=== PATIENT | female | born 1975 | race Hispanic/Latino ===

== ENCOUNTER 2021-03-09 09:50 | Inpatient (IN) | payer BC ==
--- NOTE | 2021-03-09 10:35 | RAD REPORT ---
EXAM DESCRIPTION: CT - Head Brain Wo Cont - 03/09/2021 10:26 am CLINICAL HISTORY: Syncope COMPARISON: None. TECHNIQUE: Computed axial tomography of the head was obtained. IV contrast was not requested. All CT scans are performed using dose optimization technique as appropriate and may include automated exposure control or mA/KV adjustment according to patient size. FINDINGS: An intracranial bleed is not seen . The ventricles are normal in caliber. No extra-axial fluid collection is noted. Fluid within the sinuses/ mastoids is not seen. IMPRESSION: No acute intracranial abnormality is seen. If patient's symptoms persist MRI of the bra in would be recommended.
--- NOTE | 2021-03-09 11:41 | RAD REPORT ---
EXAM DESCRIPTION: Michelle Single View03/09/2021 10:36 am CLINICAL HISTORY: Chest pain COMPARISON: none FINDINGS: [id number] bilateral pulmonary opacities. The heart is normal size IMPRESSION: Mild to moderate bilateral pulmonary opacities probably pneumonia
[2021-03-09 12:12] LABS: Absolute Lymphocytes (CBC) 1.5 K/uL (0.7-4.9); Basophils % 0.1 % (0-1.3); Hematocrit 42.5 % (36.0-45.0); Lymphocytes % 14.9 % (15.3-44.8); MPV 7.2 fL (7.6-11.3); RBC Red Blood Cell Count 4.89 M/uL (3.86-4.86)
[2021-03-09 12:21] LABS: Protime INR 1.03
[2021-03-09 12:36] LABS: AST/SGOT 231 U/L (15-37); Albumin 3.2 g/dL (3.4-5.0); Alkaline Phosphatase 275 U/L (45-117); Amylase 35 U/L (25-115); BUN Blood Urea Nitrogen 14 mg/dL (7-18); Bicarbonate 26 mmol/L (21-32); Bilirubin Direct 0.2 mg/dL (0-0.2); Bilirubin Total 0.4 mg/dL (0.2-1.0); Creatine Phosphokinase 45 U/L (26-192); Glucose Level 100 mg/dL (74-106); Lipase 67 U/L (73-393); Potassium 4.2 mmol/L (3.5-5.1); Protein, Total 7.5 g/dL (6.4-8.2); Sodium Level 136 mmol/L (136-145); Troponin (Emerg Dept Use Only) < 0.02 ng/mL (0.0-0.045)
[2021-03-09 12:42] LABS: CKMB Creatine Kinase MB < 1.0 ng/mL (1.0-3.6)
[2021-03-09 12:43] LABS: ALT/SGPT 473 U/L (12-78)
--- NOTE | 2021-03-09 13:44 | RAD REPORT ---
EXAM DESCRIPTION: CTChest For Pe Angio03/09/2021 1:05 pm CLINICAL HISTORY: Syncope/shortness of breath COMPARISON: None TECHNIQUE: The patient was administered 45 cc of 370 Isovue and started screaming. The injection was stopped. An additional 55 cc of 300 Isovue 370 was administered intravenously and additional images obtained Coronal and oblique reconstruction images were generated and reviewed. Exam utilizes a protocol for o ptimal evaluation of pulmonary arterial tree. FINDINGS: The opacification of subsegmental pulmonary arteries is suboptimal. A central pulmonary embolus is not seen. A thoracic aortic aneurysm is not noted. A pleural effusion is not seen. A pericardial effusion is not seen. Mild to moderate bilateral ground-glass opacities within the lungs IMPRESSION: No gross evidence of a pulmonary embolism Mild to moderate bilateral ground-glass opacities within the lungs can be seen with Covid pneumonia
--- NOTE | 2021-03-09 14:17 | EDPHYS ---
Physician Documentation [facility] Name: Naomi Tolliver Age: 45 yrs Sex: Female : 1975 Arrival Date: 03/09/2021 Time: 09:51 Bed 13 Private MD: MARCIA Physician Rickie Ziegler HPI: 03/09 10:06 This 45 yrs old Female presents to ER via Wheelchair with complaints of jmm Syncope - COVID+. 10:06 Details of fall: The patient fell from an upright position. Onset: The symptoms/episode jmm began/occurred acutely, today. Associated injuries: The patient sustained injury to the head. 35-year-old female with history of anxiety, diabetes mellitus the presents emerged part with complaints of shortness of breath, syncope which began acutely today. Patient hit her head. Patient was diagnosed coronavirus approximately 10 days ago with intermittent episodes of shortness of breath. Symptoms had appeared to be resolving yesterday but worsened today. Patient states she did not eat today.. Historical: - Allergies: 10:10 No Known Allergies; iw - Home Meds: 10:10 Buspirone Oral [Active]; venlafaxine oral [Active]; Metformin Oral [Active]; iw - PMHx: 10:10 Anxiety; Depressive disorder; Diabetes mellitus; iw - PSHx: 10:10 section; Cholecystectomy; uterine ablation; tummy tuck; iw - Social history:: Smoking status: Patient denies any tobacco usage or history of. ROS: 10:06 Constitutional: Negative for fever, chills, and weight loss. jmm 10:06 Respiratory: Positive for cough, shortness of breath. 10:06 All other systems are negative. Exam: 10:06 Constitutional: This is a well developed, well nourished patient who is awake, alert, jmm and in no acute distress. Head/Face: atraumatic. Eyes: EOMI, no conjunctival erythema appreciated ENT: Moist Mucus Membranes Neck: Trachea midline, Supple Chest/axilla: Normal chest wall appearance and motion. Cardiovascular: Regular rate and rhythm. No edema appreciated Respiratory: Normal respirations, no respiratory distress appreciated Abdomen/GI: Non distended, soft Back: Normal ROM Skin: General appearance color normal MS/ Extremity: Moves all extremities, no obvious deformities appreciated, no edema noted to the lower extremities Neuro: Awake and alert, normal gait Psych: Behavior is normal, Mood is normal, Patient is cooperative and pleasant Vital Signs: 10:07 BP 78 / 54; Pulse 97; Resp 16; Temp 96(TE); Pulse Ox 90% on R/A; Weight 68.04 kg; iw Height 5 ft. 1 in. (154.94 cm); Pain 0/10; 10:19 BP 82 / 60; iw 11:00 BP 113 / 64; Pulse 95; Resp 17; Pulse Ox 97% ; bp 12:00 BP 106 / 65; Pulse 95; Resp 15; Pulse Ox 96% ; bp 13:00 BP 105 / 72; Pulse 93; Resp 24; Pulse Ox 93% ; bp 13:53 BP 113 / 77; Pulse 104; Resp 20; Pulse Ox 93% on 3 lpm NC; bp 10:07 Body Mass Index 28.34 (68.04 kg, 154.94 cm) iw MDM: 10:06 Patient medically screened. [facility] 14:15 Data reviewed: vital signs, nurses notes. Counseling: I had a detailed discussion with camille the patient and/or guardian regarding: the historical points, exam findings, and any diagnostic results supporting the discharge/admit diagnosis, lab results, radiology results, the need for further work-up and treatment in the hospital. ED course: Due to systolic blood pressure below 90, patient is unable to pass [place] rules for syncope. I discussed the patient with Dr. Campa whom accepted the patient for admission. 03/09 10:06 Order name: Amylase, Serum [facility] 03/09 10:06 Order name: Basic Metabolic Panel [facility] 03/09 10:06 Order name: Blood Culture Adult (2) [facility] 03/09 10:06 Order name: CBC with Diff [facility] 03/09 10:06 Order name: CPK [facility] 03/09 10:06 Order name: Ckmb [facility] 03/09 10:06 Order name: LFT's [facility] 03/09 10:06 Order name: Lactate [facility] 03/09 10:06 Order name: Lipase [facility] 03/09 10:06 Order name: Procalcitonin [facility] 03/09 10:06 Order name: Protime (+inr); Complete Time: 12:[address] [facility] 03/09 10:06 Order name: Ptt, Activated; Complete Time: 12:[address] [facility] 03/09 10:06 Order name: Troponin (emerg Dept Use Only); Complete Time: 12:[address] [facility] 03/09 10:06 Order name: Urine Microscopic Only; Complete Time: 16:[address] [facility] 03/09 10:07 Order name: Amylase; Complete Time: 12:58 [facility] 03/09 10:07 Order name: Basic Metabolic Panel; Complete Time: 12:58 [facility] 03/09 10:07 Order name: Blood Culture; Complete Time: 13:07 [facility] 03/09 10:07 Order name: CBC with Automated Diff; Complete Time: 12:21 [facility]DE 03/09 10:07 Order name: Creatine Phosphokinase; Complete Time: 12:58 [facility] 03/09 10:07 Order name: CKMB Creatine Kinase MB; Complete Time: 12:58 [facility] 03/09 10:07 Order name: Liver (Hepatic) Function; Complete Time: 12:58 [facility] 03/09 10:07 Order name: Lactate; Complete Time: 12:21 [facility] 03/09 10:07 Order name: Lipase; Complete Time: 12:58 [facility] 03/09 10:07 Order name: Procalcitonin; Complete Time: 12:58 [facility] 03/09 10:07 Order name: D-Dimer; Complete Time: 12:[address] [facility] 03/09 10:48 Order name: Glucose, Ancillary Testing; Complete Time: 11:00 [facility] 03/09 12:53 Order name: CRP [facility] 03/09 12:53 Order name: Ferritin [facility] 03/09 12:54 Order name: C-Reactive Protein; Complete Time: 15:11 [facility] 03/09 12:54 Order name: Ferritin; Complete Time: 15:11 [facility] 03/09 14:07 Order name: Lactate; Complete Time: 17:[address] [facility] 03/09 14:58 Order name: Blood Culture Adult (2) [facility] 03/09 14:59 Order name: Blood Culture; Complete Time: 13:07 [facility] 03/09 15:39 Order name: Urine Dipstick-Ancillary; Complete Time: 16:08 [facility] 03/09 15:43 Order name: Urine --Ancillary (enter results) 03/09 20:35 Order name: Glucose, Ancillary Testing; Complete Time: 13:07 [facility] 03/09 21:12 Order name: Creatine Phosphokinase; Complete Time: 13:07 EDMS 07/24 21:12 Order name: CKMB Creatine Kinase MB; Complete Time: :MS 03/09 21:12 Order name: Troponin I; Complete Time: :03/10 02:52 Order name: Creatine Phosphokinase; Complete Time: :03/10 02:52 Order name: CKMB Creatine Kinase MB; Complete Time: 13:03/10 02:52 Order name: Troponin I; Complete Time: 13:MS 03/10 06:45 Order name: CBC with Automated Diff; Complete Time: :03/10 06:45 Order name: Protime (+INR); Complete Time: 13:03/10 06:45 Order name: PTT, Activated Partial Thromb; Complete Time: :03/10 07:41 Order name: Comprehensive Metabolic Panel; Complete Time: 13:03/10 07:41 Order name: C-Reactive Protein; Complete Time: 13:03/10 07:41 Order name: T4 Free; Complete Time: 13:03/10 07:41 Order name: Magnesium; Complete Time: 13:03/10 07:41 Order name: Thyroid Stimulating Hormone; Complete Time: :03/10 07:41 Order name: Ferritin; Complete Time: :03/10 07:47 Order name: Glucose, Ancillary Testing; Complete Time: :03/10 10:14 Order name: Hemoglobin A1c; Complete Time: :03/10 10:48 Order name: CBC Smear Scan; Complete Time: :03/10 12:10 Order name: Glucose, Ancillary Testing; Complete Time: 13:03/10 19:17 Order name: Glucose, Ancillary Testing; Complete Time: :03/10 20:42 Order name: Glucose, Ancillary Testing; Complete Time: :03/11 05:18 Order name: CBC with Automated Diff; Complete Time: 13:03/11 06:09 Order name: Comprehensive Metabolic Panel; Complete Time: 13:03/11 06:09 Order name: Magnesium; Complete Time: 13:03/11 06:18 Order name: Urinalysis; Complete Time: 13:07 EDDE 03/11 06:27 Order name: C-Reactive Protein; Complete Time: 13:07 [facility] 03/09 10:06 Order name: Chest Single View XRAY; Complete Time: 11:[address] [facility] 03/09 10:06 Order name: Accucheck; Complete Time: 11:[address] [facility] 03/09 10:06 Order name: Cardiac monitoring; Complete Time: 12:[address] [facility] 03/09 10:06 Order name: EKG - Nurse/Tech; Complete Time: 12:[address] [facility] 03/09 10:06 Order name: IV Saline Lock - Large Bore; Complete Time: 11:[address] [facility] 03/09 10:06 Order name: Labs collected and sent; Complete Time: 11:[address] [facility] 03/09 10:06 Order name: O2 Per Protocol; Complete Time: 11:[address] [facility] 03/09 10:06 Order name: O2 Sat Monitoring; Complete Time: 11:[address] [facility] 03/09 10:06 Order name: Urine Dipstick-Ancillary (obtain specimen); Complete Time: 16:[address] [facility] 03/09 10:08 Order name: CT Head Brain wo Cont; Complete Time: 10:[address] [facility] 03/09 12:24 Order name: CT Chest For PE Angio; Complete Time: 13:[address] [facility] 03/09 14:38 Order name: US Abdomen Limited 03/09 15:48 Order name: US; Complete Time: 16:08 [facility] 03/11 06:27 Order name: Ferritin; Complete Time: 13:07 [facility] 03/11 07:11 Order name: Procalcitonin; Complete Time: 13:07 [facility] 03/11 08:22 Order name: Manual Differential; Complete Time: 13:07 [facility]DE 03/11 09:06 Order name: RAD; Complete Time: 13:07 [facility] 03/11 12:41 Order name: Glucose, Ancillary Testing; Complete Time: 13:07 EDMS Administered Medications: 11:42 Drug: NS 0.9% (30 ml/kg) 30 ml/kg Route: IV; Rate: bolus; Site: right antecubital; bp 16:56 Drug: Rocephin (cefTRIAXone) 1 grams Route: IV; Rate: calculated rate; Site: left bp antecubital; Disposition: 03/12 07:04 Co-signature as Attending Physician, Rickie Ziegler MD I agree with the assessment and delma plan of care. Disposition Summary: 03/09/21 14:17 Hospitalization Ordered Hospitalization Status: Observation [facility] Provider: Tate Campa Condition: Stable jmm Problem: new jmm Symptoms: have improved jmm Bed/Room Type: Standard [facility] Location: Intensive Care Unit(03/11/21 14:13) [facility] Room Assignment: 1-(03/11/21 14:13) [facility] Diagnosis - Syncope jmm Forms: - Medication Reconciliation Form jmm - SBAR form jmm Signatures: Dispatcher [employer] EDRickie Rosado MD MD cha Mickail, Joel, PA PA jmm Williams, Irene, RN RN Rox Gabriel 5 Pernell Couch RN RN Harry Garibay RN RN Shahida Palacios Corrections: (The following items were deleted from the chart) 03/09 18:53 14:17 Telemetry/MedSurg (observation) jm bp 18:53 14:17 jm bp 03/10 13:48 03/09 18:53 [facility] ER HOLD bp mh5 03/10 13:48 03/09 18:53 ERHOLD- bp mh5 03/10 13:52 13:48 Intensive Care Unit mh5 eb 13:52 13:48 4- mh5 eb 03/11 14:13 03/10 13:52 [facility] ER HOLD eb ja1 03/11 14:13 03/10 13:52 ERHOLD- eb ja1
--- NOTE | 2021-03-09 14:17 | ER ---
Nurse's Notes [facility] Name: Naomi Tolliver Age: 45 yrs Sex: Female : 1975 Arrival Date: 03/09/2021 Time: 09:51 Bed 13 Private MD: Diagnosis: Syncope Presentation: 03/09 10:08 Chief complaint: Patient's son or daughter states: pt COVId+ X 10 days, today she iw passed out in kitchen, he found her on the floor, pt states she had been feeling good but this morning she felt very weak, had diarrhea, states she has been eating and drinking , no vomiting , no fever, +cough. Coronavirus screen: Client presents with at least one sign or symptom that may indicate coronavirus-19. Client reports previous positive COVID test result. Ebola Screen: Patient negative for fever greater than or equal to 101.5 degrees Fahrenheit, and additional compatible Ebola Virus Disease symptoms Patient denies exposure to infectious person. Patient denies travel to an Ebola-affected area in the 21 days before illness onset. No symptoms or risks identified at this time. Initial Sepsis Screen: Does the patient meet any 2 criteria? Systolic BP < 90 mmHg. Altered Mental Status. Does the patient have a suspected source of infection?. Risk Assessment: Do you want to hurt yourself or someone else? Patient reports no desire to harm self or others. Onset of symptoms was March 09, 2021. 10:08 Method Of Arrival: Wheelchair iw 10:08 Acuity: MACEY 2 iw Triage Assessment: 10:15 General: Appears distressed, uncomfortable, Behavior is cooperative, appropriate for bp age, anxious. Pain: Denies pain. EENT: No deficits noted. Neuro: Reports a syncopal episode. Cardiovascular: Rhythm is sinus rhythm. Respiratory: Breath sounds with wheezes. GI: No signs and/or symptoms were reported involving the gastrointestinal system. : No signs and/or symptoms were reported regarding the genitourinary system. Derm: No deficits noted. Musculoskeletal: No deficits noted. Historical: - Allergies: 10:10 No Known Allergies; iw - Home Meds: 10:10 Buspirone Oral [Active]; venlafaxine oral [Active]; Metformin Oral [Active]; iw - PMHx: 10:10 Anxiety; Depressive disorder; Diabetes mellitus; iw - PSHx: 10:10 section; Cholecystectomy; uterine ablation; tummy tuck; iw - Social history:: Smoking status: Patient denies any tobacco usage or history of. Screenin:29 Abuse screen: Denies threats or abuse. Denies injuries from another. Nutritional bp screening: No deficits noted. Tuberculosis screening: No symptoms or risk factors identified. Fall Risk None identified. Assessment: 10:15 General: SEE TRIAGE NOTE. bp 11:00 Reassessment: No changes from previously documented assessment. Patient and/or family bp updated on plan of care and expected duration. Pain level reassessed. 13:00 Reassessment: No changes from previously documented assessment. Patient and/or family bp updated on plan of care and expected duration. Pain level reassessed. Vital Signs: 10:07 BP 78 / 54; Pulse 97; Resp 16; Temp 96(TE); Pulse Ox 90% on R/A; Weight 68.04 kg; iw Height 5 ft. 1 in. (154.94 cm); Pain 0/10; 10:19 BP 82 / 60; iw 11:00 BP 113 / 64; Pulse 95; Resp 17; Pulse Ox 97% ; bp 12:00 BP 106 / 65; Pulse 95; Resp 15; Pulse Ox 96% ; bp 13:00 BP 105 / 72; Pulse 93; Resp 24; Pulse Ox 93% ; bp 13:53 BP 113 / 77; Pulse 104; Resp 20; Pulse Ox 93% on 3 lpm NC; bp 10:07 Body Mass Index 28.34 (68.04 kg, 154.94 cm) iw ED Course: 09:51 Patient arrived in ED. ds1 09:59 Elier Ho PA is PHCP. jmm 09:59 Rickie Ziegler MD is Attending Physician. jmm 10:10 Triage completed. iw 10:11 Arm band placed on. iw 10:16 Harry Quevedo, RN is Primary Nurse. bp 10:26 CT Head Brain wo Cont In Process Unspecified. EDMS 10:36 Chest Single View XRAY In Process Unspecified. EDMS 11:45 Inserted saline lock: 22 gauge in right upper arm, using aseptic technique. Blood bp collected. 12:29 Patient has correct armband on for positive identification. Bed in low position. Call bp light in reach. Side rails up X2. 13:05 CT Chest For PE Angio In Process Unspecified. EDMS 14:16 Tate Campa DO is Hospitalizing Provider. [facility] 16:37 Blood Culture Sent. [facility] 16:38 Blood Culture Adult (2) Sent. [facility] 16:38 Lactate Sent. [facility] 16:38 Ferritin Sent. [facility] 16:38 CRP Sent. 5 16:38 Amylase, Serum Sent. [facility] 16:38 Basic Metabolic Panel Sent. 5 16:38 Blood Culture Adult (2) Sent. [facility] 16:38 CBC with Diff Sent. 5 16:38 CPK Sent. 5 16:38 Ckmb Sent. [facility] 16:38 LFT's Sent. [facility] 16:39 Initial lab(s) drawn, by ED staff, sent to lab. [facility] 03/11 00:37 Primary Nurse role handed off by Harry Quevedo, RN tt3 Administered Medications: 03/09 11:42 Drug: NS 0.9% (30 ml/kg) 30 ml/kg Route: IV; Rate: bolus; Site: right antecubital; bp 16:56 Drug: Rocephin (cefTRIAXone) 1 grams Route: IV; Rate: calculated rate; Site: left bp antecubital; Outcome: 14:17 Decision to Hospitalize by Provider. [facility] 03/11 16:14 Patient left the ED. ph Signatures: Dispatcher [employer] EDMS Elier Ho PA PA [facility] Debbie Miller ds1 Nicole Lilly, RN RIZWAN Kandace Singleton RN RN ph Martinez, Maria [facility] Harry Quevedo RN RN bp Trim, Tyler tt3
[2021-03-09 15:08] LABS: C-Reactive Protein 63.2 mg/L (<3.00); Ferritin 209.4 ng/mL (8-388)
--- NOTE | 2021-03-09 15:23 | P.HP ---
Certification for Inpatient Patient admitted to: Inpatient With expected LOS: >2 Midnights Patient will require the following post-hospital care: None Practitioner: I am a practitioner with admitting privileges, knowledge of patient current condition, hospital course, and medical plan of care. Services: Services provided to patient in accordance with Admission requirements found in Title 42 Section 412.3 of the Code of Federal Regulations Patient History Date of Service: 03/09/21 Primary Care Provider: Dr. Pitts Reason for admission: Syncope History of Present Illness: 45-year-old female with history of prediabetes, depression with anxiety. Patient presented to the hospital after she had a syncopal episode. This was witnessed by her 2 children. She had been recently diagnosed with Covid on February 27. She had been having fever, chills. She has tried to maintain her hydration. Her PCP had prescribed prednisone and supplementation. Also during this time she had stopped her buspirone and Effexor which she takes for depression with anxiety. This morning she went to the shower. She felt lightheaded and dizzy. She also reported some disorientation. She does not recall the events there after but she ended up in the kitchen where she had fallen and had a syncopal episode. She does not know how long this occurred. She was brought in by private transport to the ER for further evaluation. Patient also had reported some dysuria. No abdominal pain noted. No significant nausea or vomiting. In the ER patient was found to be hypotensive. She was given fluid bolus at 30 mg/kg. Blood pressure improved. White count 8.9, hemoglobin 14.6. Platelet count 262. Sodium 136, potassium 4.2. BUN of 14, creatinine 0.8 with a GFR 71. Glucose 100. Lactic acid 2.5. D-dimer elevated at 509. AST elevated to 31, ALT 473, alk phos 275. Ferritin 219, CRP 63. Total bilirubin normal. Lipase normal. Procalcitonin 0.7. CT head unremarkable. Chest x-ray showed mild to moderate Covid changes. CT chest also showed evidence of Covid pneumonia. Negative for PE. Patient has been stabilized. I was asked to admit the patient for further evaluation. Patient appears stable in the emergency room. Slightly tachycardic. at bedside. Patient is unvaccinated. is vaccinated. Patient reports history of cholecystectomy. Home medications list reviewed: Yes - Past Medical/Surgical History Diabetic: No -: Prediabetes -: Depression with anxiety -: Cholecystectomy -: -: Uterine ablation -: Tummy tumaegan Psychosocial/ Personal History: Patient is . 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 - Family History Family History: Reviewed- Non-Contributory - Social History Smoking Status: Never smoker Alcohol use: Yes CD- Drugs: No Caffeine use: Yes Place of Residence: Home Review of Systems General: Fever, Chills, Sweats, Weakness, Malaise, As per HPI Eyes: Unremarkable ENT: Unremarkable Respiratory: Cough, Shortness of Breath, SOB with Excertion, As per HPI Cardiovascular: Light Headedness, As per HPI Gastrointestinal: As per HPI Genitourinary: Dysuria, As per HPI Musculoskeletal: Unremarkable Integumentary: Unremarkable Neurological: Weakness, As per HPI Lymphatics: Unremarkable Physical Examination - Studies Laboratory Data (last 24 hrs) 03/09/21 11:45: PT 11.8, INR 1.03, APTT 25.8 03/09/21 11:45: WBC 9.90, Hgb 14.6, Hct 42.5, Plt Count 262 03/09/21 11:45: Sodium 136, Potassium 4.2, BUN 14, Creatinine 0.87, Glucose 100, Total Bilirubin 0.4, AST 231 H, ALT 473 H*, Alkaline Phosphatase 275 H, Amylase 35, Lipase 67 L Assessment and Plan - Plan CT head: COMPARISON: None. TECHNIQUE: Computed axial tomography of the head was obtained. IV contrast was not requested. All CT scans are performed using dose optimization technique as appropriate and may include automated exposure control or mA/KV adjustment according to patient size. FINDINGS: An intracranial bleed is not seen . The ventricles are normal in caliber. No extra-axial fluid collection is noted. Fluid within the sinuses/ mastoids is not seen. IMPRESSION: No acute intracranial abnormality is seen CT chest: COMPARISON: None TECHNIQUE: The patient was administered 45 cc of 370 Isovue and started screaming. The injection was stopped. An additional 55 cc of 300 Isovue 370 was administered intravenously and additional images obtained Coronal and oblique reconstruction images were generated and reviewed. Exam utilizes a protocol for optimal evaluation of pulmonary arterial tree. FINDINGS: The opacification of subsegmental pulmonary arteries is suboptimal. A central pulmonary embolus is not seen. A thoracic aortic aneurysm is not noted. A pleural effusion is not seen. A pericardial effusion is not seen. Mild to moderate bilateral ground-glass opacities within the lungs IMPRESSION: No gross evidence of a pulmonary embolism Mild to moderate bilateral ground-glass opacities within the lungs can be seen with Covid pneumonia Chest x-ray: COMPARISON: none FINDINGS: [id number] bilateral pulmonary opacities. The heart is normal size IMPRESSION: Mild to moderate bilateral pulmonary opacities probably pneumonia Physical Exam: GENERAL: Patient alert oriented x3. No significant distress noted. Patient slightly tachycardic. Room air saturations normal. VITAL SIGNS: Reviewed HEENT: Head atraumatic. Extraocular movements are intact. Dry mucous membranes noted NECK: Supple. No carotid bruits. No lymphadenopathy or thyromegaly. LUNGS: Poor inspiration and expiration. Decreased at the bases bilateral. HEART: Regular rate and rhythm, no appreciable gallops, rubs, murmurs or extra heart sounds ABDOMEN: Soft and nondistended. Positive bowel sounds. No hepatosplenomegaly was noted. Mild pain to the pelvic region EXTREMITIES: Without any cyanosis, clubbing, rash, lesions or peripheral edema. Dry skin noted. NEUROLOGIC: The patient is oriented to person, place and time. Strength and sensation are grossly intact. Face is symmetric. SKIN: Normal color, turgor and temperature. No ulcerations or rashes noted. Impression: Syncope secondary to sepsis likely related to mild to moderate bilateral COVID- 19 pneumonia complicated with suspected UTI without septic shock or severe sepsis and dehydration, unvaccinated for Covid Elevated liver function suspect related to above with likely underlying fatty liver Prediabetes Depression with anxiety Plan: Syncope secondary to sepsis likely related to mild to moderate bilateral COVID- 19 pneumonia complicated with suspected UTI without septic shock or severe sepsis and dehydration, unvaccinated for Covid: Patient will be admitted for further evaluation and treatment. Patient given fluid bolus in the emergency room. Will continue with IV fluids. Blood and urine culture to be obtained. Will start IV Rocephin as UTI is suspected. White count within normal range. Procalcitonin slightly elevated. Will monitor for sepsis. CT scan shows evidence of mild to moderate bilateral Covid pneumonia. Patient is unvaccinated. She was diagnosed with Covid on February 27. Patient had been treated with prednisone and vitamin supplementation. Will continue with IV Solu-Medrol and vitamin supplementation. Patient is not a candidate for other Covid medication at this time due to elevated liver function test. Ferritin within normal range. CRP elevated. Will continue to monitor CRP and ferritin. Recheck chest x-ray tomorrow. Will consult pulmonology to further evaluate. For her syncope, will monitor telemetry and cardiac enzymes. EKG unremarkable. CT head unremarkable. Bedrest for now. Encourage incentive spirometer, proning. Will have physical therapy evaluate tomorrow. Pulmonology will be consulted. Await recommendation. Continue to reassess and monitor lab closely. Will monitor for any changes. Elevated liver function suspect related to above with likely underlying fatty liver: Liver function test elevated. This is likely related to her syncope and/or Covid infection. Will obtain abdominal ultrasound to further evaluate. Patient with history of cholecystectomy in the past. Prediabetes: Will monitor Accu-Cheks. Sliding scale in place. Will check A1c. Depression with anxiety: Patient has been taking buspirone and Effexor. She stopped this 2 weeks ago. Will monitor off medication at this time. Code Status: Full Code DVT prophylaxis: Lovenox Advanced Care Planning-30 minutes: Home at discharge. Likely will require home oxygen. Discharge Plan: Home Plan to discharge in: 72 Hours - Advance Directives Does patient have a Living Will: No Does patient have a Durable POA for Healthcare: No - Code Status/Comfort Care Code Status Assessed: Yes (Full code) Time Spent Managing Pts Care (In Minutes): 55
[2021-03-09 15:38] LABS: Urine Blood 2+ (Negative); Urine Glucose Negative (Negative); Urine Protein 1+ (Negative)
--- NOTE | 2021-03-09 15:48 | RAD REPORT ---
EXAM DESCRIPTION: US - Abdomen Exam Limited - 03/09/2021 3:36 pm CLINICAL HISTORY: Abdominal pain. COMPARISON: None. FINDINGS: Cholecystectomy The biliary tree is normal caliber. Mild fatty liver. Spleen measures 10.4 centimeters a normal echotexture it IMPRESSION: Cholecystectomy Mild fatty liver
[2021-03-09] MEDS ORDERED: CEFTRIAXONE/SWI 1gm 1 GM/10 ML SYR ONE (15:52)
[2021-03-09] MEDS ORDERED: NA CHLORIDE 0.9% 100 ML ONE (15:52)
[2021-03-09 15:55] LABS: Urine Bacteria <20 /HPF (<20); Urine RBC <5 /HPF (NONE SEEN)
[2021-03-09] MEDS ORDERED: ALBUTEROL 2.5 MG/3 ML NEB SOL NEB PRN (17:42)
[2021-03-09] MEDS ORDERED: ONDANSETRON 4 MG/2 ML VIAL IV PRN (17:42)
[2021-03-09] MEDS ORDERED: IPRATROPIUM BROM 0.5MG/2.5ML NEB PRN (17:42)
[2021-03-09] MEDS ORDERED: METHYLPREDNISOLONE 125 MG INJ ONE (20:29)
[2021-03-09] MEDS ORDERED: ASCORBIC ACID 500 MG TABLET ONE (20:29)
[2021-03-09] MEDS ORDERED: NA CHLORIDE 0.9% 1,000 ML ONE (20:29)
[2021-03-09] MEDS: INSULIN -REGULAR HUMAN 50 UNIT/0.5 ML ML SQ SCH (20:55)
[2021-03-09] MEDS: NA CHLORIDE 0.9% 1,000 ML IV SCH (20:56)
[2021-03-09] MEDS: METHYLPREDNISOLONE 125 MG INJ IV SCH (20:56)
[2021-03-09] MEDS: ASCORBIC ACID 500 MG TABLET PO SCH ×2 (20:56→21:00)
[2021-03-09 21:00] LABS: Creatine Phosphokinase 41 U/L (26-192); Troponin I < 0.02 ng/mL (0.0-0.045)
[2021-03-09] MEDS ORDERED: ACETAMINOPHEN 500 MG TAB ONE (21:07)
[2021-03-09 21:12] LABS: CKMB Creatine Kinase MB < 1.0 ng/mL (1.0-3.6)
[2021-03-09 23:27] VITALS: BMI 28.3
[2021-03-10] MEDS: METHYLPREDNISOLONE 125 MG INJ IV SCH ×3 (02:14→18:00)
[2021-03-10 02:31] LABS: Creatine Phosphokinase 45 U/L (26-192); Troponin I < 0.02 ng/mL (0.0-0.045)
[2021-03-10] MEDS ORDERED: METHYLPREDNISOLONE 125 MG INJ ONE ×2 (02:35→08:22)
[2021-03-10 02:51] LABS: CKMB Creatine Kinase MB < 1.0 ng/mL (1.0-3.6)
--- NOTE | 2021-03-10 03:11 | P.INFCA ---
Sepsis Focused Assessment - Focused Assessment Complete? Sepsis Focused Assessment Completed?: Yes - Sepsis Screen Result Severe Sepsis: Negative Septic Shock: Negative - Evaluation Current stage of sepsis: Ruled out Reason for ruling out sepsis: lactate impr. VSS - Vital Signs Reviewed: Yes Temperature: 98.1 F Heart rate: 103 Blood Pressure: 112/82 Respiratory Rate: 18 O2 Sat by Pulse Oximetry: 88 - Examination Date exam was performed: 03/09/21 Time exam was performed: 18:00 Heart: Regular rate/rhythm Lungs: Clear bilaterally Peripheral pulses: 3+ Normal Peripheral pulse location: Radial Capillary refill: <2 Seconds Skin examination: Normal turgor
[2021-03-10] MEDS: NA CHLORIDE 0.9% 1,000 ML IV SCH ×2 (03:42→11:52)
--- NOTE | 2021-03-10 06:02 | P.PN ---
Subjective Date of Service: 03/10/21 Primary Care Provider: Dr. Pitts Chief Complaint: Syncope Subjective: Improving (Slight desaturation today. Was placed on high flow 50%) Physical Examination - Vital Signs Temperature: 98.1 F Blood Pressure: 112/82 Pulse: 103 Respirations: 18 Pulse Ox (%): 88 - Studies Laboratory Data (last 24 hrs) 03/09/21 11:45: PT 11.8, INR 1.03, APTT 25.8 03/09/21 11:45: WBC 9.90, Hgb 14.6, Hct 42.5, Plt Count 262 03/09/21 11:45: Sodium 136, Potassium 4.2, BUN 14, Creatinine 0.87, Glucose 100, Total Bilirubin 0.4, AST 231 H, ALT 473 H*, Alkaline Phosphatase 275 H, Amylase 35, Lipase 67 L Assessment & Plan Discharge Plan: Home Plan to discharge in: Greater than 2 days Physician Review Additional Text: CT head: COMPARISON: None. TECHNIQUE: Computed axial tomography of the head was obtained. IV contrast was not requested. All CT scans are performed using dose optimization technique as appropriate and may include automated exposure control or mA/KV adjustment according to patient size. FINDINGS: An intracranial bleed is not seen . The ventricles are normal in caliber. No extra-axial fluid collection is noted. Fluid within the sinuses/ mastoids is not seen. IMPRESSION: No acute intracranial abnormality is seen CT chest: COMPARISON: None TECHNIQUE: The patient was administered 45 cc of 370 Isovue and started screaming. The injection was stopped. An additional 55 cc of 300 Isovue 370 was administered intravenously and ad ditional images obtained Coronal and oblique reconstruction images were generated and reviewed. Exam utilizes a protocol for optimal evaluation of pulmonary arterial tree. FINDINGS: The opacification of subsegmental pulmonary arteries is suboptimal. A central pulmonary embolus is not seen. A thoracic aortic aneurysm is not noted. A pleural effusion is not seen. A pericardial effusion is not seen. Mild to moderate bilateral ground-glass opacities within the lungs IMPRESSION: No gross evidence of a pulmonary embolism Mild to moderate bilateral ground-glass opacities within the lungs can be seen with Covid pneumonia Chest x-ray: COMPARISON: none FINDINGS: [id number] bilateral pulmonary opacities. The heart is normal size IMPRESSION: Mild to moderate bilateral pulmonary opacities probably pneumonia ABUS: COMPARISON: None. FINDINGS: Cholecystectomy The biliary tree is normal caliber. Mild fatty liver. Spleen measures 10.4 centimeters a normal echotexture IMPRESSION: Cholecystectomy Mild fatty liver Physical Exam: GENERAL: Patient alert oriented x3. No significant distress noted. Patient slightly tachycardic. Room air saturations normal. VITAL SIGNS: Reviewed HEENT: Head atraumatic. Extraocular movements are intact. Dry mucous membranes noted NECK: Supple. No carotid bruits. No lymphadenopathy or thyromegaly. LUNGS: Better air movement bilateral. Poor inspiration and expiration. Was on 3 to 4 L this morning. Respiratory increase oxygen to high flow at 50% HEART: Regular rate and rhythm, no appreciable gallops, rubs, murmurs or extra heart sounds ABDOMEN: Soft and nondistended. Positive bowel sounds. No hepatosplenomegaly was noted. Mild pain to the pelvic region EXTREMITIES: Without any cyanosis, clubbing, rash, lesions or peripheral edema. Dry skin noted. NEUROLOGIC: The patient is oriented to person, place and time. Strength and sensation are grossly intact. Face is symmetric. SKIN: Normal color, turgor and temperature. No ulcerations or rashes noted. Impression: Syncope secondary to sepsis likely related to mild to moderate bilateral COVID- 19 pneumonia complicated without septic shock or severe sepsis and dehydration, unvaccinated for Covid Elevated liver function suspect related to above with underlying fatty liver Prediabetes Depression with anxiety Abnormal TSH/free T4 Plan: Syncope secondary to sepsis likely related to mild to moderate bilateral COVID- 19 pneumonia complicated without septic shock or severe sepsis and dehydration, unvaccinated for Covid: Overall stable. Respiratory increase oxygen requirement to high flow 50%. Will consult pulmonology for further recommendation. Continue IV Solu-Medrol and vitamin supplementation. Discontinue IV Rocephin as there is no evidence of UTI. Blood cultures obtained. CT head unremarkable. Encourage incentive spirometer, proning. Encourage ambulation. Continue to wean off oxygen. Abdominal ultrasound shows fatty liver. Discontinue IV fluids if taking good oral intake. Anticipate improvement over the next 48 to 72 hours. I will turn the service over to the hospitalist team tomorrow. I will go plan of care with him. Elevated liver function suspect related to above with underlying fatty liver: LFTs improved. Abdominal ultrasound shows fatty liver. Monitor liver function test. Prediabetes: A1c 6.0. Continue Accu-Cheks and sliding scale. Depression with anxiety: Patient has been taking buspirone and Effexor. She stopped this 2 weeks ago. Will monitor off medication at this time. Abnormal TSH/free T4: Recommend to recheck in 4 to 6 weeks. We will monitor this closely. Code Status: Full Code DVT prophylaxis: Lovenox Advanced Care Planning-30 minutes: Home at discharge. Likely will require home oxygen. Time Spent Managing Pts Care (In Minutes): 55
[2021-03-10] MEDS ORDERED: NA CHLORIDE 0.9% 1,000 ML ONE (06:21)
[2021-03-10 06:28] LABS: Absolute Lymphocytes (CBC) 0.5 K/uL (0.7-4.9); Basophils % 0.6 % (0-1.3); Hematocrit 37.4 % (36.0-45.0); Lymphocytes % 7.4 % (15.3-44.8); MPV 6.9 fL (7.6-11.3); RBC Red Blood Cell Count 4.29 M/uL (3.86-4.86)
[2021-03-10 06:31] LABS: Protime INR 1.01
[2021-03-10 07:34] LABS: ALT/SGPT 296 U/L (12-78); AST/SGOT 90 U/L (15-37); Albumin 2.7 g/dL (3.4-5.0); Alkaline Phosphatase 254 U/L (45-117); BUN Blood Urea Nitrogen 9 mg/dL (7-18); Bicarbonate 28 mmol/L (21-32); Bilirubin Total 0.4 mg/dL (0.2-1.0); Ferritin 161.2 ng/mL (8-388); Glucose Level 184 mg/dL (74-106); Potassium 4.3 mmol/L (3.5-5.1); Protein, Total 6.7 g/dL (6.4-8.2); Sodium Level 140 mmol/L (136-145); Thyroid Stimulating Hormone 0.299 uIU/mL (0.360-3.740)
[2021-03-10] MEDS: INSULIN -REGULAR HUMAN 50 UNIT/0.5 ML ML SQ SCH ×4 (07:44→20:31)
[2021-03-10] MEDS: ASCORBIC ACID 500 MG TABLET PO SCH ×4 (08:13→20:40)
[2021-03-10] MEDS: VITAMIN D 1000 UNIT TAB PO SCH (08:13)
[2021-03-10] MEDS: THIAMINE HCL 100 MG TABLET PO SCH (08:13)
[2021-03-10] MEDS: ENOXAPARIN 40 MG/0.4 ML SQ SCH (08:13)
[2021-03-10] MEDS: BENZONATATE 100 MG CAP PO PRN ×2 (08:16→19:09)
[2021-03-10] MEDS: ZINC SULFATE 220 MG CAP PO SCH (08:16)
[2021-03-10] MEDS ORDERED: ASCORBIC ACID 500 MG TABLET ONE ×4 (08:22→20:59)
[2021-03-10] MEDS ORDERED: VITAMIN D 1000 UNIT TAB ONE (08:22)
[2021-03-10] MEDS ORDERED: BENZONATATE 100 MG CAP PO ONE ×2 (08:22→19:17)
[2021-03-10] MEDS ORDERED: ENOXAPARIN 40 MG/0.4 ML SQ ONE (08:23)
[2021-03-10] MEDS ORDERED: THIAMINE HCL 100 MG TABLET ONE (08:25)
[2021-03-10] MEDS ORDERED: ZINC SULFATE 220 MG CAP ONE (08:37)
[2021-03-10] MEDS: ACETAMINOPHEN 500 MG TAB PO PRN ×2 (10:28→19:49)
[2021-03-10 10:47] LABS: Blood Morphology Comment NOT SEEN (NOT SEEN); Platelet Estimate ADEQ; White Blood Cell Scan OK (OK)
[2021-03-10] MEDS ORDERED: ACETAMINOPHEN 500 MG TAB ONE ×2 (10:50→20:10)
[2021-03-10] MEDS ORDERED: TRAMADOL HCL 50 MG TAB PO PRN (12:20)
[2021-03-10] MEDS ORDERED: TRAMADOL HCL 50 MG TAB ONE ×2 (13:43→19:19)
[2021-03-10] MEDS ORDERED: CEFTRIAXONE/SWI 1gm 1 GM/10 ML SYR IVP SCH (16:00)
[2021-03-10] MEDS ORDERED: METHYLPREDNISOLONE 40 MG INJ ONE (19:17)
[2021-03-10] MEDS ORDERED: ONDANSETRON 4 MG/2 ML VIAL ONE (20:11)
[2021-03-10] MEDS ORDERED: IBUPROFEN 400 MG TAB PO ONE (20:39)
[2021-03-10] MEDS ORDERED: IBUPROFEN 400 MG TAB ONE (22:34)
[2021-03-11] MEDS: METHYLPREDNISOLONE 125 MG INJ IV SCH ×3 (01:50→17:30)
[2021-03-11] MEDS ORDERED: METHYLPREDNISOLONE 125 MG INJ ONE ×2 (02:11→08:41)
[2021-03-11] MEDS: NA CHLORIDE 0.9% 1,000 ML IV SCH ×2 (03:57→17:31)
[2021-03-11] MEDS ORDERED: NA CHLORIDE 0.9% 1,000 ML ONE (04:12)
[2021-03-11 05:15] LABS: Absolute Lymphocytes (CBC) 1.1 K/uL (0.7-4.9); Basophils % 0.3 % (0-1.3); Hematocrit 37.9 % (36.0-45.0); Lymphocytes % 4.7 % (15.3-44.8); RBC Red Blood Cell Count 4.35 M/uL (3.86-4.86)
[2021-03-11] MEDS: PANTOPRAZOLE 40MG TABLET PO SCH (05:55)
[2021-03-11 06:09] LABS: Bilirubin Total 0.4 mg/dL (0.2-1.0); Magnesium 2.3 mg/dL (1.8-2.4); Potassium 3.8 mmol/L (3.5-5.1); Protein, Total 7.2 g/dL (6.4-8.2)
[2021-03-11 06:17] LABS: Urine Appearance CLEAR (Clear); Urine Bilirubin NEGATIVE (Negative); Urine Blood NEGATIVE (Negative); Urine Color YELLOW (Yellow); Urine Glucose NEGATIVE (Negative); Urine Protein NEGATIVE (Negative); Urine Specific Gravity 1.015 (1.005-1.030); Urine Urobilinogen 0.2 mg/dL (0.2-1.0); Urine pH 6.5 (5.0-7.0)
[2021-03-11] MEDS ORDERED: PANTOPRAZOLE 40MG TABLET PO ONE (06:17)
[2021-03-11 06:18] LABS: Urine Microscopic Reflex NO UMIC
[2021-03-11 06:26] LABS: C-Reactive Protein 55.7 mg/L (<3.00); Ferritin 215.5 ng/mL (8-388)
[2021-03-11] MEDS: INSULIN -REGULAR HUMAN 50 UNIT/0.5 ML ML SQ SCH ×4 (07:30→20:13)
[2021-03-11] MEDS: METFORMIN HCL 500 MG TAB PO SCH ×3 (08:00→17:30)
[2021-03-11 08:21] LABS: Platelet Estimate ADEQ
[2021-03-11 08:22] LABS: Blood Morphology Comment NOT SEEN (NOT SEEN)
[2021-03-11] MEDS ORDERED: ZINC SULFATE 220 MG CAP ONE (08:41)
[2021-03-11] MEDS ORDERED: THIAMINE HCL 100 MG TABLET ONE (08:41)
[2021-03-11] MEDS ORDERED: METFORMIN HCL 500 MG TAB ONE (08:41)
[2021-03-11] MEDS ORDERED: ASPIRIN EC 81 MG TAB PO ONE (08:41)
[2021-03-11] MEDS ORDERED: VITAMIN D 1000 UNIT TAB ONE (08:41)
[2021-03-11] MEDS ORDERED: ASCORBIC ACID 500 MG TABLET ONE ×2 (08:42→13:11)
[2021-03-11] MEDS ORDERED: POTASSIUM CL SA 10 MEQ TAB PO ONE ×2 (08:42→09:00)
[2021-03-11] MEDS ORDERED: ENOXAPARIN 40 MG/0.4 ML SQ ONE (08:42)
[2021-03-11] MEDS: ASCORBIC ACID 500 MG TABLET PO SCH ×4 (09:00→20:11)
[2021-03-11] MEDS ORDERED: HOME MED 1 EA UNK (Lansoprazole [Lansoprazole] 30 MG Capsule.Dr) PO SCH (09:00)
[2021-03-11] MEDS: VITAMIN D 1000 UNIT TAB PO SCH (09:00)
[2021-03-11] MEDS: VENLAFAXINE HCL XR 75 MG CAP PO SCH (09:00)
[2021-03-11] MEDS: BUSPIRONE HCL 15 MG TABLET PO SCH (09:00)
[2021-03-11] MEDS: ZINC SULFATE 220 MG CAP PO SCH (09:00)
[2021-03-11] MEDS: ASPIRIN EC 81 MG TAB PO SCH (09:00)
[2021-03-11] MEDS: FLUTICASONE 50MCG NASAL SPRAY NAS SCH (09:00)
[2021-03-11] MEDS: ENOXAPARIN 40 MG/0.4 ML SQ SCH (09:00)
[2021-03-11] MEDS: MONTELUKAST 10 MG TAB PO SCH (09:00)
[2021-03-11] MEDS: THIAMINE HCL 100 MG TABLET PO SCH (09:00)
--- NOTE | 2021-03-11 09:06 | RAD REPORT ---
EXAM DESCRIPTION: RAD - Chest Single View - 03/11/2021 6:25 am CLINICAL HISTORY: Follow-up Covid Chest pain. COMPARISON: Chest Single View dated 03/09/2021 FINDINGS: Portable technique limits examination quality. The lungs are underinflated with patchy opacity in both lungs, greater on the right. The heart is nor mal in size. No displaced fractures. IMPRESSION: [id number] bilateral pulmonary opacities, greater on the right, compatible with un derlying pulmonary infection.
--- NOTE | 2021-03-11 11:10 | P.CNS ---
Date of Consult: 03/11/21 (PT agreed to TV) Reason for Consult: COVID pneumonia Primary Care Provider: Dr. Pitts Chief Complaint: Syncope History of Present Illness: Age 45 AW COVID penumonia and syncope/ hypotension/ pos for COIVD penumonia Allergies hydrocodone [From [place]] Adverse Reaction (Verified 03/10/21 22:53) hallucination tramadol Adverse Reaction (Verified 03/10/21 22:49) Nausea/Vomiting Home Medications: Buspirone HCl 15 mg PO DAILY 03/10/21 Fluticasone [Flonase 50mcg Nasal [place]] 2 sprays NS DAILY 03/10/21 Lansoprazole 30 mg PO DAILY 03/10/21 Metformin HCl 500 mg PO BID 03/10/21 Montelukast [Singulair] 10 mg PO DAILY 03/10/21 Venlafaxine HCl [Venlafaxine HCl ER] 75 mg PO DAILY 03/10/21 - Past Medical/Surgical History Diabetic: No -: Prediabetes -: Depression with anxiety -: Cholecystectomy -: -: Uterine ablation -: Rodolfo hinojosa Psychosocial/ Personal History: Patient is . 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
[2021-03-11] MEDS: BARICITINIB 2 MG TABLET PO SCH (12:00)
[2021-03-11] MEDS ORDERED: IVERMECTIN 3 MG TABLET PO SCH (12:00)
[2021-03-11] MEDS: BENZONATATE 100 MG CAP PO PRN (13:00)
[2021-03-11] MEDS ORDERED: BENZONATATE 100 MG CAP PO ONE (13:11)
[2021-03-12] MEDS: METHYLPREDNISOLONE 125 MG INJ IV SCH ×2 (01:24→10:06)
[2021-03-12] MEDS: ACETAMINOPHEN 500 MG TAB PO PRN (01:24)
[2021-03-12] MEDS: NA CHLORIDE 0.9% 1,000 ML IV SCH (03:52)
[2021-03-12 04:51] LABS: Absolute Lymphocytes (CBC) 0.8 K/uL (0.7-4.9); Basophils % 0.2 % (0-1.3); Hematocrit 32.4 % (36.0-45.0); MPV 6.5 fL (7.6-11.3); RBC Red Blood Cell Count 3.76 M/uL (3.86-4.86)
[2021-03-12] MEDS: PANTOPRAZOLE 40MG TABLET PO SCH (05:34)
[2021-03-12 05:39] LABS: ALT/SGPT 167 U/L (12-78); AST/SGOT 40 U/L (15-37); Albumin 2.5 g/dL (3.4-5.0); Alkaline Phosphatase 173 U/L (45-117); BUN Blood Urea Nitrogen 13 mg/dL (7-18); Bicarbonate 26 mmol/L (21-32); Bilirubin Total 0.3 mg/dL (0.2-1.0); Ferritin 264.6 ng/mL (8-388); Glucose Level 144 mg/dL (74-106); Magnesium 2.2 mg/dL (1.8-2.4); Potassium 3.8 mmol/L (3.5-5.1); Sodium Level 141 mmol/L (136-145)
[2021-03-12] MEDS: INSULIN -REGULAR HUMAN 50 UNIT/0.5 ML ML SQ SCH ×3 (07:30→16:08)
[2021-03-12] MEDS: ASCORBIC ACID 500 MG TABLET PO SCH ×2 (07:33→13:51)
[2021-03-12] MEDS: ENOXAPARIN 40 MG/0.4 ML SQ SCH (07:33)
[2021-03-12] MEDS: ASPIRIN EC 81 MG TAB PO SCH (07:33)
[2021-03-12] MEDS: METFORMIN HCL 500 MG TAB PO SCH ×3 (07:34→16:08)
[2021-03-12] MEDS: THIAMINE HCL 100 MG TABLET PO SCH (07:34)
[2021-03-12] MEDS: ZINC SULFATE 220 MG CAP PO SCH (07:34)
[2021-03-12] MEDS: VITAMIN D 1000 UNIT TAB PO SCH (07:34)
[2021-03-12] MEDS: MONTELUKAST 10 MG TAB PO SCH (07:34)
[2021-03-12] MEDS: VENLAFAXINE HCL XR 75 MG CAP PO SCH (07:34)
[2021-03-12] MEDS ORDERED: POTASSIUM CL SA 10 MEQ TAB PO ONE (08:00)
[2021-03-12] MEDS: FLUTICASONE 50MCG NASAL SPRAY NAS SCH (09:00)
--- NOTE | 2021-03-12 09:39 | P.PN ---
Subjective Date of Service: 03/11/21 Subjective: No new changes, No C/O voiced, Improving Patient is still slightly hypoxic. Currently on 6 L of oxygen. Chest x-ray still with significant infiltrates on the right side. However, no significant changes. Patient continues to be stable. Review of Systems 10-point ROS is otherwise unremarkable Physical Examination - Vital Signs Temperature: 97.7 F Blood Pressure: 126/86 Pulse: 95 Respirations: 28 Pulse Ox (%): 95 - Physical Exam General: Alert, In no apparent distress, Oriented x3 Respiratory: Diminished, Expiratory wheezes Cardiovascular: Regular rate/rhythm, Normal S1 S2, No murmurs Gastrointestinal: Normal bowel sounds, Soft and benign, Non-distended, No tenderness, No rebound, No guarding Musculoskeletal: No clubbing, No swelling, No tenderness Neurological: Normal strength at 5/5 x4 extr, Sensation intact, Cranial nerves 3-12 intact - Studies Medications List Reviewed: Yes Assessment & Plan - Problems (Diagnosis) (1) Pneumonia due to COVID-19 virus Current Visit: Yes Status: Acute (2) Hypoxemia Current Visit: Yes Status: Acute - Plan 1. Continue with IV steroids 2. Monitor inflammatory markers 3. Repeat chest x-ray if symptoms are progressively worsening 4. O2 per protocol 5. Pulmonary consultation appreciated 6. Continue with albuterol inhaler therapy; also supportive care 7. Monitor LFTs 8. GI and DVT prophylaxis Discharge Plan: Home Plan to discharge in: Greater than 2 days - Advance Directives Does patient have a Living Will: No Does patient have a Durable POA for Healthcare: No - Code Status/Comfort Care Code Status Assessed: Yes Code Status: Full Code Critical Care: No
--- NOTE | 2021-03-12 09:55 | P.PN ---
Date of Service: 03/12/21 Subjective Review of Systems 10-point ROS is otherwise unremarkable Physical Examination - Vital Signs reviewed - Physical Exam General: Alert, In no apparent distress, Oriented x3 Respiratory: Diminished, Expiratory wheezes Cardiovascular: Regular rate/rhythm, Normal S1 S2, No murmurs Gastrointestinal: Normal bowel sounds, Soft and benign, Non-distended, No tenderness, No rebound, No guarding Musculoskeletal: No clubbing, No swelling, No tenderness Neurological: Normal strength at 5/5 x4 extr, Sensation intact, Cranial nerves 3-12 intact Assessment & Plan - Problems (Diagnosis) (1) Pneumonia due to COVID-19 virus Current Visit: Yes Status: Acute (2) Hypoxemia Current Visit: Yes Status: Acute - Plan Continue with plan of care as mentioned below: 1. Continue with IV steroids 2. Monitor inflammatory markers 3. Repeat chest x-ray if symptoms are progressively worsening 4. O2 per protocol 5. Pulmonary consultation appreciated 6. Continue with albuterol inhaler therapy; also supportive care 7. Monitor LFTs 8. GI and DVT prophylaxis
[2021-03-12] MEDS: BUSPIRONE HCL 15 MG TABLET PO SCH (10:04)
[2021-03-12] MEDS: BARICITINIB 2 MG TABLET PO SCH (10:04)
--- NOTE | 2021-03-12 12:42 | EKG ---
Test Date: 2021-03-09 Test Time: 12:09:00 Activities Specialist: BP MEASUREMENT RESULTS: Intervals: Rate: 94 PA: 122 QRSD: 62 QT: 334 QTc: 417 [place]: P: 47 PA: 122 QRS: 5 T: 53 INTERPRETIVE STATEMENTS: Normal sinus rhythm Normal ECG No previous ECG available for comparison Electronically Signed On 03-12-21 12:37:56 CDT by Roland Johnson
--- NOTE | 2021-03-12 12:46 | ECHO ---
HEIGHT: 5 ft 1 in WEIGHT: 150 lb 0 oz DATE OF STUDY: 03/12/[address]: Tate Campa DO 2-DIMENSIONAL: YES M.MODE: YES DOPPLER: YES COLOR FLOW: YES TDS: PORTABLE: YES DEFINITY: BUBBLE STUDY: DIAGNOSIS: SYNCOPE, SEPSIS CARDIAC HISTORY: CATHERIZATION: NO SURGERY: NO PROSTHETIC VALVE: NO PACEMAKER: NO MEASUREMENTS (cm) DIASTOLIC (NORMALS) SYSTOLIC (NORMALS) IVSd 0.8 (0.6-1.2) LA Diam 2.6 (1.9-4.0) LVEF 51% LVIDd 4.2 (3.5-5.7) LVIDs 3.1 (2.0-3.5) %FS 26% LVPWd 1.0 (0.6-1.2) Ao Diam 2.5 (2.0-3.7) 2 DIMENSIONAL ASSESSMENT: RIGHT ATRIUM: NORMAL LEFT ATRIUM: NORMAL RIGHT VENTRICLE: NORMAL LEFT VENTRICLE: NORMAL TRICUSPID VALVE: NORMAL MITRAL VALVE: NORMAL PULMONIC VALVE: NORMAL AORTIC VALVE: NORMAL PERICARDIAL EFFUSION: NONE AORTIC ROOT: NORMAL LEFT VENTRICULAR WALL MOTION: NORMAL DOPPLER/COLOR FLOW: MILD TRICUSPID REGURGITATION. COMMENTS: NORMAL LEFT VENTRICULAR EJECTION FRACTION AND SIZE. NO WALL MOTION ABNORMALITY. MILD TRICUSPID REGURGITATION. NORMAL RIGHT VENTRICULAR SYSTOLIC PRESSURE. NO EFFUSION. TECHNOLOGIST: LIONEL VASQUEZ
[2021-03-12 12:47] VITALS: O2SAT 94
--- NOTE | 2021-03-12 16:28 | P.DS ---
Discharge Date: 03/12/21 Primary Care Provider: Dr. Pitts Disposition: ROUTINE DISCHARGE Discharge Condition: GOOD Reason for Admission: Syncope - Problems (1) Pneumonia due to COVID-19 virus Status: Acute (2) Hypoxemia Status: Acute Brief History of Present Illness: 45-year-old female with history of prediabetes, depression with anxiety. Patient presented to the hospital after she had a syncopal episode. This was witnessed by her 2 children. She had been recently diagnosed with Covid on February 27. She had been having fever, chills. She has tried to maintain her hydration. Her PCP had prescribed prednisone and supplementation. Also during this time she had stopped her buspirone and Effexor which she takes for depre ssion with anxiety. This morning she went to the shower. She felt lightheaded and dizzy. She also reported some disorientation. She does not recall the events there after but she ended up in the kitchen where she had fallen and had a syncopal episode. She does not know how long this occurred. She was brought in by private transport to the ER for further evaluation. Patient also had reported some dysuria. No abdominal pain noted. No significant nausea or vomiting. In the ER patient was found to be hypotensive. She was given fluid bolus at 30 mg/kg. Blood pressure improved. White count 8.9, hemoglobin 14.6. Platelet count 262. Sodium 136, potassium 4.2. BUN of 14, creatinine 0.8 with a GFR 71. Glucose 100. Lactic acid 2.5. D-dimer elevated at 509. AST elevated to 31, ALT 473, alk phos 275. Ferritin 219, CRP 63. Total bilirubin normal. Lipase normal. Procalcitonin 0.7. CT head unremarkable. Chest x-ray showed mild to moderate Covid changes. CT chest also showed evidence of Covid pneumonia. Negative for PE. Patient has been stabilized. I was asked to admit the patient for further evaluation. Patient appears stable in the emergency room. Slightly tachycardic. at bedside. Patient is unvaccinated. is vaccinated. Patient reports history of cholecystectomy. Hospital Course: Patient symptoms have improved. Patient is no longer lightheaded. Patient feels much better. Hydration has really helped her feel better. Clinically patient is stable for discharge. Will discharge home with family. Vital Signs/Physical Exam: Temp Pulse Resp BP Pulse Ox 98.9 F 79 28 H 120/55 L 96 03/12/21 12:00 03/12/21 12:00 03/12/21 09:41 03/12/21 12:00 03/12/21 12:00 General: Alert, In no apparent distress, Oriented x3 Laboratory Data at Discharge: WBC 19.80 K/uL (4.3-10.9) H 03/12/21 04:35 Hgb 11.1 g/dL (12.0-15.0) L 03/12/21 04:35 Hct 32.4 % (36.0-45.0) L 03/12/21 04:35 Plt Count 311 K/uL (152-406) 03/12/21 04:35 PT 11.6 SECONDS (9.5-12.5) 03/10/21 06:15 INR 1.01 03/10/21 06:15 APTT 26.5 SECONDS (24.3-36.9) 03/10/21 06:15 Sodium 141 mmol/L (136-145) 03/12/21 04:35 Potassium 3.8 mmol/L (3.5-5.1) 03/12/21 04:35 BUN 13 mg/dL (7-18) 03/12/21 04:35 Creatinine 0.54 mg/dL (0.55-1.3) L 03/12/21 04:35 Glucose 144 mg/dL (74-106) H 03/12/21 04:35 Magnesium 2.2 mg/dL (1.8-2.4) 03/12/21 04:35 Total Bilirubin 0.3 mg/dL (0.2-1.0) 03/12/21 04:35 AST 40 U/L (15-37) H 03/12/21 04:35 ALT 167 U/L (12-78) H 03/12/21 04:35 Alkaline Phosphatase 173 U/L (45-117) H 03/12/21 04:35 Troponin I < 0.02 ng/mL (0.0-0.045) 03/10/21 01:39 Amylase 35 U/L (25-115) 03/09/21 11:45 Lipase 67 U/L (73-393) L 03/09/21 11:45 Home Medications: Buspirone HCl 15 mg PO DAILY 03/10/21 Fluticasone [Flonase 50MCG Nasal [place]*] 2 sprays NS DAILY 03/10/21 Lansoprazole 30 mg PO DAILY 03/10/21 Metformin HCl 500 mg PO BID 03/10/21 Montelukast [Singulair*] 10 mg PO DAILY 03/10/21 Venlafaxine HCl [Venlafaxine HCl ER] 75 mg PO DAILY 03/10/21 Albuterol Inhaler [Ventolin Inhaler*] 2 puff IH Q6H PRN #1 hfa.aer.ad 03/12/21 Apixaban [Eliquis] 5 mg PO BID #30 tablet 03/12/21 Ascorbic Acid [Vitamin C*] 500 mg PO QID #30 tablet 03/12/21 Benzonatate [Tessalon Perle*] 100 mg PO Q6HP PRN #30 cap 03/12/21 Ivermectin 18 mg PO Q48H #12 tablet 03/12/21 predniSONE [Deltasone] 20 mg PO BID #21 tab 03/12/21 New Medications: Apixaban [Eliquis] 5 mg PO BID #30 tablet Ivermectin 18 mg PO Q48H #12 tablet predniSONE [Deltasone] 20 mg PO BID #21 tab Benzonatate [Tessalon Perle*] 100 mg PO Q6HP PRN #30 cap PRN Reason: Cough Albuterol Inhaler [Ventolin Inhaler*] 2 puff IH Q6H PRN #1 hfa.aer.ad PRN Reason: Shortness Of Breath Ascorbic Acid [Vitamin C*] 500 mg PO QID #30 tablet Physician Discharge Instructions: PROBLEM: Covid Pneumonia GOAL: Clear understanding of disease process INSTRUCTIONS: OK TO DC IV AND DC HOME FOLLOW-UP WITH PRIMARY CARE PROVIDER IN 1-2 WEEKS FOLLOW-UP WITH fuel cell technician in 1-2 weeks RETURN TO THE ER IF symptoms worsen CALL or TEXT DR. TANNER AT [phone] IF ANY QUESTIONS REGARDING HOSPITAL STAY. PLEASE CALL THE FLOOR AT [phone] IF ANY MEDICATION OR NURSING QUESTIONS. Follow up with a [facility] of your choice: [facility], [place] [id number] Diet: AHA Activity: Fall precautions DME DME: Date Ordered: Name of Company: [employer] Services Needed: None Name of Company: Date or Referral: IMMUNIZATION Influenza Vaccine Indicated: Influenza Vaccine Given: Date Given: Pneumonia Vaccine Indicated: No Pneumonia Vaccine Given: Date Given: Diet: AHA Activity: Fall precautions Followup: Ca Pitts Ly, DO [Primary Care Provider] - Time spent managing pt's care (in minutes): 35
[2021-03-18 11:56] VITALS: BP 126/86; TEMP 97.7
== END 2021-03-12 17:35 | disposition home or self-care (01) | DRG 177 ==
LOC: ER 09:50 → ERHOLD 15:03 → 3RD-ICU 03-11 15:38
PROVIDERS: ADMIT Family Medicine; ATTEND Family Medicine
DX: U07.1 COVID-19 (principal); J12.82 Pneumonia due to coronavirus disease 2019; R09.02 Hypoxemia; R73.03 Prediabetes; F41.8 Other specified anxiety disorders; R79.89 Other specified abnormal findings of blood chemistry; K76.0 Fatty (change of) liver, not elsewhere classified
CPT/HCPCS: 36415; 70450; 71045; 71275; 76705; 80048; 80053; 80076; 81003; 81015; 82150; 82550; 82553; 82728; 82947; 83036; 83605; 83690; 83735; 84145; 84439; 84443; 84484; 85025; 85379; 85610; 85730; 86140; 87040; 93005; 93306; 94002; 94003; 94010; 96374; 97161; 99284; J0696; J1650; J2405; J2920; J2930; J7030; Q9967